=== PATIENT | female | born 1935 | race Caucasian/White ===

== ENCOUNTER → 2016-05-24 | Outpatient (CLI) | payer MEDICARE, OTHER ==
--- NOTE | 2016-05-24 14:34 | REPMRS ---
Patient History The patient states she had a clinical breast exam in 01/2016. Patient is postmenopausal. Family history of prostate cancer in father at age 70. Took unspecified hormones for 1 year. Digital Woman Screen Mammo: May 24, 2016 - Exam #: [id number] Bilateral CC and MLO view(s) were taken. Technologist: Sydnee Workman, Technologist Prior study comparison: May 12, 2015, digital woman screen mammo performed at [facility]. April 27, 2014, bilateral bilat screen digital mammo, performed at [facility] FINDINGS: There are scattered fibroglandular densities. There has been no change in the appearance of the mammogram from the prior studies. There is a mild amount of residual fibroglandular tissue which is fairly symmetric. There is no interval development of dominant mass, architectural distortion, or clustered microcalcification suggestive of malignancy. ASSESSMENT: BI-RADS/ACR category 1 mammogram. Negative. Recommendation Routine screening mammogram in 1 year (for women over age 40). This mammogram was interpreted with the aid of an FDA-approved computer-aided dectection system. Electronically Signed By: Justin Sellers MD 05/24/16 1490
== END ==
LOC: M WHC 13:29
PROVIDERS: ATTEND Internal Medicine
DX: Z12.31 Encounter for screening mammogram for malignant neoplasm of breast (principal); Z78.0 Asymptomatic menopausal state

== ENCOUNTER → 2016-06-26 | Outpatient (REF) | payer MEDICARE, OTHER ==
[2016-06-26 13:07] LABS: ALBUMIN 3.7 GM/DL (3.2-5.2); ALBUMIN/GLOBULIN RATIO 1.19 (1.00-1.93); BILIRUBIN,TOTAL 0.7 MG/DL (0.2-1.0); CALCIUM LEVEL 8.9 MG/DL (8.8-10.2); CREATININE FOR GFR 0.97 MG/DL (0.55-1.02); GLOMERULAR FILTRATION RATE 58.7 (>32); MAGNESIUM LEVEL 2.3 MG/DL (1.8-2.4); POTASSIUM SERUM 3.9 MEQ/L (3.5-5.1); TOTAL PROTEIN 6.8 GM/DL (6.4-8.2)
[2016-06-26 13:10] LABS: MEAN CORPUSCULAR HEMOGLOBIN 29.2 pg (27.0-33.0); MEAN CORPUSCULAR HGB CONC 32.8 g/dl (32.0-36.5); RED CELL DISTRIBUTION WIDTH 14.4 % (11.5-14.5); WHITE BLOOD COUNT 7.6 K/mm3 (4.0-10.0)
== END ==
LOC: M SFHCPLAZ 09:24
PROVIDERS: ATTEND Internal Medicine
DX: G47.30 Sleep apnea, unspecified (principal); I10 Essential (primary) hypertension; E78.00 Pure hypercholesterolemia, unspecified; E55.9 Vitamin D deficiency, unspecified

== ENCOUNTER → 2016-12-26 | Outpatient (REF) | payer MEDICARE, OTHER ==
[2016-12-26 13:24] LABS: ALBUMIN 3.6 GM/DL (3.2-5.2); BILIRUBIN,TOTAL 0.9 MG/DL (0.2-1.0); CREATININE FOR GFR 1.02 MG/DL (0.55-1.02); GLOMERULAR FILTRATION RATE 55.2 (>32); POTASSIUM SERUM 3.9 MEQ/L (3.5-5.1); TOTAL PROTEIN 7.2 GM/DL (6.4-8.2)
== END ==
LOC: M SFHCADAM 09:39
PROVIDERS: ATTEND Internal Medicine
DX: I10 Essential (primary) hypertension (principal); E55.9 Vitamin D deficiency, unspecified

== ENCOUNTER → 2017-06-07 | Outpatient (CLI) | payer MEDICARE, OTHER | LOC: M RAD 13:26 | DX: R92.0 Mammographic microcalcification found on diagnostic imaging of breast (principal) | CPT/HCPCS: 77065 ==

== ENCOUNTER → 2017-06-26 | Outpatient (REF) | payer MEDICARE, OTHER ==
[2017-06-26 14:20] LABS: HEMATOCRIT 35.7 % (36.0-47.0); HEMOGLOBIN 11.4 g/dl (12.0-16.0); MEAN CORPUSCULAR HEMOGLOBIN 29.1 pg (27.0-33.0); MEAN CORPUSCULAR HGB CONC 31.9 g/dl (32.0-36.5); MEAN CORPUSCULAR VOLUME 91.1 fl (80.0-96.0); PLATELET COUNT, AUTOMATED 317 10^3/uL (150-450); RED BLOOD COUNT 3.92 10^6/uL (4.00-5.40); RED CELL DISTRIBUTION WIDTH 14.5 % (11.5-14.5); WHITE BLOOD COUNT 7.6 10^3/uL (4.0-10.0)
[2017-06-26 14:39] LABS: ALBUMIN 3.4 GM/DL (3.2-5.2); ALBUMIN/GLOBULIN RATIO 1.03 (1.00-1.93); ALKALINE PHOSPHATASE 141 U/L (45-117); ALT/SGPT 17 U/L (12-78); ANION GAP 9 MEQ/L (8-16); AST/SGOT 12 U/L (7-37); BILIRUBIN,TOTAL 0.6 MG/DL (0.2-1.0); BLOOD UREA NITROGEN 18 MG/DL (7-18); CALCIUM LEVEL 8.6 MG/DL (8.8-10.2); CARBON DIOXIDE LEVEL 29 MEQ/L (21-32); CHLORIDE LEVEL 103 MEQ/L (98-107); CHOLESTEROL LEVEL 143 MG/DL (<200); CHOLESTEROL RISK RATIO 2.553 (<5); CREATININE FOR GFR 0.96 MG/DL (0.55-1.30); GLOMERULAR FILTRATION RATE 59.2 (>32); GLUCOSE, FASTING 86 MG/DL (70-100); HDL CHOLESTEROL 56 MG/DL (>40); LDL CHOLESTEROL 62.6 MG/DL (<100); MAGNESIUM LEVEL 2.3 MG/DL (1.8-2.4); NON-HDL-C 87 MG/DL; POTASSIUM SERUM 4.2 MEQ/L (3.5-5.1); SODIUM LEVEL 141 MEQ/L (136-145); TOTAL PROTEIN 6.7 GM/DL (6.4-8.2); TRIGLYCERIDES LEVEL 122 MG/DL (<150)
[2017-06-26 15:43] LABS: TOTAL 25(OH) VITAMIN D 35.9 NG/ML (30.0-100.0)
== END ==
LOC: M SFHCPLAZ 09:29
DX: I10 Essential (primary) hypertension (principal); G47.30 Sleep apnea, unspecified; D64.9 Anemia, unspecified; F09 Unspecified mental disorder due to known physiological condition; E55.9 Vitamin D deficiency, unspecified; E78.00 Pure hypercholesterolemia, unspecified
CPT/HCPCS: 83735

== ENCOUNTER → 2017-08-01 | Outpatient (CLI) | payer MEDICARE, OTHER | LOC: M RAD 10:14 | DX: F03.90 Unspecified dementia, unspecified severity, without behavioral disturbance, psychotic disturbance, mood disturbance, and anxiety (principal); I67.81 Acute cerebrovascular insufficiency; R93.0 Abnormal findings on diagnostic imaging of skull and head, not elsewhere classified | CPT/HCPCS: 70551 ==

== ENCOUNTER → 2018-01-09 | Outpatient (REF) | payer MEDICARE, OTHER ==
[2018-01-09 13:19] LABS: ALBUMIN 3.4 GM/DL (3.2-5.2); ALKALINE PHOSPHATASE 150 U/L (45-117); ALT/SGPT 19 U/L (12-78); ANION GAP 9 MEQ/L (8-16); AST/SGOT 10 U/L (7-37); BILIRUBIN,TOTAL 0.5 MG/DL (0.2-1.0); BLOOD UREA NITROGEN 19 MG/DL (7-18); CALCIUM LEVEL 8.6 MG/DL (8.8-10.2); CARBON DIOXIDE LEVEL 28 MEQ/L (21-32); CHLORIDE LEVEL 106 MEQ/L (98-107); CREATININE FOR GFR 0.97 MG/DL (0.55-1.30); GLOMERULAR FILTRATION RATE 58.4 (>32); GLUCOSE, FASTING 95 MG/DL (70-100); MAGNESIUM LEVEL 2.4 MG/DL (1.8-2.4); POTASSIUM SERUM 4.1 MEQ/L (3.5-5.1); SODIUM LEVEL 143 MEQ/L (136-145); TOTAL PROTEIN 6.8 GM/DL (6.4-8.2)
== END ==
LOC: M SFHCADAM 10:03
DX: I10 Essential (primary) hypertension (principal)
CPT/HCPCS: 83735

== ENCOUNTER → 2018-06-04 | Outpatient (CLI) | payer MEDICARE, OTHER ==
--- NOTE | 2018-06-04 17:55 | REP ---
Digital screening mammography with CAD: Comparison mammography: 06/07/2017 and 05/29/2017, 05/24/2016. Mammographic findings: There are scattered fibroglandular elements bilaterally. Vascular calcification is again noted bilaterally. Today's mammography again demonstrates a polymorphic tight grouping of microcalcifications in the right lateral mid breast unchanged from most recent comparison study of June 09, 2017 but progressed when compared with the older studies. No other suspicious mammographic finding. Impression: BIRADS/ACR 0 mammogram, incomplete. Additional imaging and/or prior images needed. Suspicious grouping of microcalcifications persists in the right breast laterally at approximately 9 o'clock position. Diagnostic right breast mammography recommended. BI-RADS/ACR category 0 mammogram, incomplete. Need additional imaging and/or prior mammograms for comparison. This mammogram was interpreted with the aid of an FDA-approved computer-aided detection system. The patient states that she has not had a clinical breast exam in over a year. The patient letter being requested is m0. This patient's estimated Tyrer-Cuzick lifetime risk assessment for the breast cancer is 0.5 %. Electronically Signed by Boni Salomon MD 06/04/2018 06:18 P
== END ==
LOC: M RAD 12:49
PROVIDERS: ATTEND Internal Medicine
DX: Z12.31 Encounter for screening mammogram for malignant neoplasm of breast (principal); R92.0 Mammographic microcalcification found on diagnostic imaging of breast

== ENCOUNTER → 2018-06-07 | Outpatient (CLI) | payer MEDICARE, OTHER ==
--- NOTE | 2018-06-07 13:31 | REP ---
Digital diagnostic unilateral right breast mammography with CAD: History: Screening mammography from June 04, 2018 is BI-RADS category 0 incomplete because of a previously noted grouping of microcalcifications persisting in the right breast laterally. These had been identified on June 07, 2017 and were categorized BI-RADS IV suspicious. Mammographic findings: Magnified focal spot compression CC, MLO, and true ML views of the right breast are obtained. A non-magnified true ML view is obtained. The microcalcific grouping is best seen in the CC projection and is felt to be unchanged from the May 2017 prior study. It remain suspicious. No other significant mammographic finding. Impression: BI-RADS/ACR category 4 mammogram. Suspicious abnormality - biopsy should be considered. Usually requires biopsy. BI-RADS category IV suspicious right breast imaging. Microcalcific grouping persists in the upper outer quadrant. Stereotactic needle biopsy recommended. No change since June 07, 2017. This mammogram was interpreted with the aid of an FDA-approved computer-aided detection system. The patient states that she/he has not had a clinical breast exam in over a year. The patient letter being requested is m4 . Electronically Signed by Boni Salomon MD 06/07/2018 07:54 P
== END ==
LOC: M RAD 12:20
PROVIDERS: ATTEND Internal Medicine
DX: R92.0 Mammographic microcalcification found on diagnostic imaging of breast (principal)

== ENCOUNTER → 2018-07-16 | Outpatient (REF) | payer MEDICARE, OTHER ==
[2018-07-16 13:39] LABS: HEMATOCRIT 39.6 % (36.0-47.0); HEMOGLOBIN 12.4 g/dl (12.0-15.5); MEAN CORPUSCULAR HEMOGLOBIN 29.2 pg (27.0-33.0); MEAN CORPUSCULAR HGB CONC 31.3 g/dl (32.0-36.5); MEAN CORPUSCULAR VOLUME 93.2 fl (80.0-96.0); PLATELET COUNT, AUTOMATED 327 10^3/uL (150-450); RED BLOOD COUNT 4.25 10^6/uL (4.00-5.40); WHITE BLOOD COUNT 7.9 10^3/uL (4.0-10.0)
[2018-07-16 14:50] LABS: ALBUMIN 3.5 GM/DL (3.2-5.2); BILIRUBIN,TOTAL 0.7 MG/DL (0.2-1.0); CALCIUM LEVEL 8.7 MG/DL (8.8-10.2); CHOLESTEROL RISK RATIO 2.469 (<5); CREATININE FOR GFR 0.98 MG/DL (0.55-1.30); GLOMERULAR FILTRATION RATE 57.7 (>32); MAGNESIUM LEVEL 2.3 MG/DL (1.8-2.4); TOTAL PROTEIN 6.8 GM/DL (6.4-8.2)
== END ==
LOC: M SFHCADAM 08:48
PROVIDERS: ATTEND Internal Medicine
DX: G47.30 Sleep apnea, unspecified (principal); I10 Essential (primary) hypertension; E78.00 Pure hypercholesterolemia, unspecified

== ENCOUNTER → 2019-01-15 | Outpatient (REF) | payer MEDICARE, OTHER ==
[2019-01-15 12:31] LABS: HEMATOCRIT 38.5 % (36.0-47.0); HEMOGLOBIN 12.5 g/dl (12.0-15.5); MEAN CORPUSCULAR HEMOGLOBIN 30.1 pg (27.0-33.0); MEAN CORPUSCULAR HGB CONC 32.5 g/dl (32.0-36.5); MEAN CORPUSCULAR VOLUME 92.8 fl (80.0-96.0); PLATELET COUNT, AUTOMATED 293 10^3/uL (150-450); RED BLOOD COUNT 4.15 10^6/uL (4.00-5.40); WHITE BLOOD COUNT 8.8 10^3/uL (4.0-10.0)
[2019-01-15 12:32] LABS: ALBUMIN 3.6 GM/DL (3.2-5.2); BILIRUBIN,TOTAL 0.6 MG/DL (0.2-1.0); CREATININE FOR GFR 1.06 MG/DL (0.55-1.30); GLOMERULAR FILTRATION RATE 52.6 (>32); MAGNESIUM LEVEL 2.3 MG/DL (1.8-2.4); POTASSIUM SERUM 4.3 MEQ/L (3.5-5.1); TOTAL PROTEIN 6.7 GM/DL (6.4-8.2)
== END ==
LOC: M SFHCADAM 09:25
PROVIDERS: ATTEND Internal Medicine
DX: G47.30 Sleep apnea, unspecified (principal); D64.9 Anemia, unspecified; I10 Essential (primary) hypertension; E55.9 Vitamin D deficiency, unspecified

== ENCOUNTER 2019-05-25 19:12 | Emergency (ER) | payer MEDICARE, OTHER ==
[~2019-05-25] VITALS: Ht 152.4 cm; Wt 84.1 kg
[2019-05-25 19:26] VITALS: BP 138/77
[2019-05-25] MEDS ORDERED: MEMA10TA19 PO (19:31)
[2019-05-25] MEDS ORDERED: XARE20TA PO (19:31)
[2019-05-25] MEDS ORDERED: FURO20TA2 PO (19:31)
[2019-05-25] MEDS ORDERED: DONETAB6 PO (19:32)
[2019-05-25] MEDS ORDERED: ATOR40TA75 PO (19:33)
[2019-05-25] MEDS ORDERED: FLUO10CA15 PO (19:33)
[2019-05-25] MEDS ORDERED: D3 S1CAP3 PO (19:33)
[2019-05-25] MEDS ORDERED: MIRA3350 PO (19:37)
[2019-05-25] MEDS ORDERED: NS 500 ML IV ONE (20:00)
[2019-05-25 20:15] LABS: BASO % 0.4 % (0.0-1.0); EOS # 0.1 10^3/uL (0.0-0.5); EOS % 0.7 % (0.0-3.0); HEMATOCRIT 40.4 % (36.0-47.0); HEMOGLOBIN 12.7 g/dl (12.0-15.5); LYMPH # 1.6 10^3/uL (1.5-5.0); LYMPH % 19.6 % (24.0-44.0); MEAN CORPUSCULAR HEMOGLOBIN 28.6 pg (27.0-33.0); MEAN CORPUSCULAR HGB CONC 31.4 g/dl (32.0-36.5); MONO # 0.5 10^3/uL (0.0-0.8); MONO % 6.5 % (0.0-5.0); NEUTROPHILS # 5.9 10^3/uL (1.5-8.5); NEUTROPHILS % 72.4 % (36.0-66.0); PLATELET COUNT, AUTOMATED 296 10^3/uL (150-450); RED BLOOD COUNT 4.44 10^6/uL (4.00-5.40); WHITE BLOOD COUNT 8.2 10^3/uL (4.0-10.0)
[2019-05-25 20:34] LABS: INFLUENZA A AMPLIFICATION NEGATIVE (NEGATIVE); INFLUENZA B AMPLIFICATION NEGATIVE (NEGATIVE)
[2019-05-25 20:39] LABS: APPEARANCE, URINE CLEAR (CLEAR); BACTERIA, URINE AUTO NEGATIVE (NEGATIVE); BILIRUBIN, URINE AUTO NEGATIVE (NEGATIVE); BLOOD, URINE BLOOD NEGATIVE (NEGATIVE); COLOR, URINE YELLOW (YELLOW); GLUCOSE, URINE (UA) AUTO NEGATIVE (NEGATIVE); KETONE, URINE AUTO NEGATIVE (NEGATIVE); LEUKOCYTE ESTERASE, URINE AUTO NEGATIVE (NEGATIVE); MUCUS, URINE SMALL (NEGATIVE); NITRITE, URINE AUTO NEGATIVE (NEGATIVE); PROTEIN, URINE AUTO NEGATIVE (NEGATIVE); RBC, URINE AUTO 0 /HPF (0-3); SQUAMOUS EPITHELIAL CELL UR AU 0 /HPF (0-6); UROBILINOGEN, URINE AUTO 0.2 mg/dL (0.0-2.0); WBC, URINE AUTO 0 /HPF (0-3)
[2019-05-25 20:48] LABS: CALCIUM LEVEL 9.2 MG/DL (8.8-10.2); CREATININE FOR GFR 1.1 MG/DL (0.55-1.30); FREE THYROXINE INDEX 3.1 % (1.3-4.8); GLOMERULAR FILTRATION RATE 50.4 (>32); POTASSIUM SERUM 3.3 MEQ/L (3.5-5.1); THYROID STIMULATING HORMONE 3.51 uIU/ML (0.358-3.740); THYROXINE (T4) 8.9 UG/DL (4.5-12.0)
[2019-05-25] MEDS ORDERED: POTASSIUM CHLORIDE 10 MEQ SR TABLET PO ONE (21:00)
--- NOTE | 2019-05-25 23:04 | REP ---
Clinical: Cough . Comparison: None . Findings: The mediastinum and cardiac silhouette are stable and within normal limits for portable technique. The lung wagner are clear without acute consolidation, effusion, or pneumothorax. Skeletal structures are intact. Impression: No acute cardiopulmonary process appreciated. Electronically Signed by Jens Warren MD 05/25/2019 10:55 P
== END 2019-05-25 22:38 | disposition home or self-care (01) ==
LOC: M ED 19:12 → EDBD 19:12 → M ED 22:38
DX: E86.9 Volume depletion, unspecified (principal); E87.6 Hypokalemia; I10 Essential (primary) hypertension; I48.91 Unspecified atrial fibrillation; D64.9 Anemia, unspecified; G62.9 Polyneuropathy, unspecified; K21.9 Gastro-esophageal reflux disease without esophagitis; Z79.899 Other long term (current) drug therapy; Z79.01 Long term (current) use of anticoagulants

== ENCOUNTER → 2019-06-03 | Outpatient (REF) | payer MEDICARE, OTHER ==
[~2019-06-03] MED LIST: ATOR40TA75 PO; D3 S1CAP3 PO; DONETAB6 PO; FLUO10CA15 PO; FURO20TA2 PO; MEMA10TA19 PO; MIRA3350 PO; XARE20TA PO
[2019-06-03 19:49] LABS: APPEARANCE, URINE HAZY (CLEAR); BACTERIA, URINE AUTO 2+ (NEGATIVE); BILIRUBIN, URINE AUTO NEGATIVE (NEGATIVE); BLOOD, URINE BLOOD 1+ (NEGATIVE); COLOR, URINE YELLOW (YELLOW); GLUCOSE, URINE (UA) AUTO NEGATIVE (NEGATIVE); KETONE, URINE AUTO NEGATIVE (NEGATIVE); LEUKOCYTE ESTERASE, URINE AUTO 3+ (NEGATIVE); MUCUS, URINE SMALL (NEGATIVE); NITRITE, URINE AUTO POSITIVE (NEGATIVE); PROTEIN, URINE AUTO NEGATIVE (NEGATIVE); RBC, URINE AUTO 5 /HPF (0-3); SPECIFIC GRAVITY URINE AUTO 1.015 (1.002-1.035); SQUAMOUS EPITHELIAL CELL UR AU 0 /HPF (0-6); UROBILINOGEN, URINE AUTO 0.2 mg/dL (0.0-2.0); WBC, URINE AUTO 37 /HPF (0-3)
== END ==
LOC: M SMT 16:52
PROVIDERS: ATTEND Nurse Practitioner Family
DX: R31.0 Gross hematuria (principal)
CPT/HCPCS: 51798; 81001; 87088; 87186; 88108; G0463

== ENCOUNTER → 2019-07-22 | Outpatient (REF) | payer MEDICARE, OTHER ==
[2019-07-22 12:30] LABS: HEMATOCRIT 36.6 % (36.0-47.0); HEMOGLOBIN 11.8 g/dl (12.0-15.5); MEAN CORPUSCULAR HEMOGLOBIN 29.6 pg (27.0-33.0); MEAN CORPUSCULAR HGB CONC 32.2 g/dl (32.0-36.5); MEAN CORPUSCULAR VOLUME 91.7 fl (80.0-96.0); PLATELET COUNT, AUTOMATED 275 10^3/uL (150-450); RED BLOOD COUNT 3.99 10^6/uL (4.00-5.40); WHITE BLOOD COUNT 7.6 10^3/uL (4.0-10.0)
[2019-07-22 13:07] LABS: ALBUMIN 3.2 GM/DL (3.2-5.2); BILIRUBIN,TOTAL 0.5 MG/DL (0.2-1.0); CALCIUM LEVEL 8.7 MG/DL (8.8-10.2); CHOLESTEROL RISK RATIO 2.73 (<5); CREATININE FOR GFR 1.04 MG/DL (0.55-1.30); GLOMERULAR FILTRATION RATE 53.7 (>32); MAGNESIUM LEVEL 2.3 MG/DL (1.8-2.4); POTASSIUM SERUM 3.8 MEQ/L (3.5-5.1); THYROID STIMULATING HORMONE 3.05 uIU/ML (0.358-3.740); TOTAL PROTEIN 6.4 GM/DL (6.4-8.2)
== END ==
LOC: M SFHCADAM 11:06
PROVIDERS: ATTEND Internal Medicine
DX: D64.9 Anemia, unspecified (principal); I10 Essential (primary) hypertension; E78.00 Pure hypercholesterolemia, unspecified; R23.2 Flushing

== ENCOUNTER 2019-08-27 11:51 | Day surgery (SDC) | payer MEDICARE, OTHER ==
[~2019-08-27] VITALS: Ht 152.4 cm; Wt 82.1 kg
[~2019-08-27 11:51] MED LIST changes: +LIDOCAINE 2% INJ 100 MG/5 ML SDV (FOR ANES.) As Ordered ONE; +LR 1,000 ML IV SCH; +MIDAZOLAM INJ 2 MG/2 ML VIAL (J2250) As Ordered ONE; +ONDANSETRON 4MG/2ML VIAL (J2405) As Ordered ONE; +ceFAZolin SOD 2 GM in IV 1 EA IV ONE; +dexameTHASONE 4 MG/ML 1ML VIAL (J1100 PER 1MG) As Ordered ONE; +fentaNYL 100 MCG/2 ML INJECTION (J3010) As Ordered ONE; +propofoL 200 MG/20 ML VIAL As Ordered ONE
[2019-08-27] MEDS ORDERED: CLON0.1D3 (12:36)
[2019-08-27] MEDS ORDERED: BIMA01SOL (12:36)
[2019-08-27] MEDS ORDERED: TRAM50TA2 (12:36)
[2019-08-27] MEDS ORDERED: LIDOCAINE 1% SDV INJ 30 ML VIAL As Ordered ONE (13:21)
[2019-08-27 15:05] VITALS: BP 125/65
--- NOTE | 2019-08-27 15:22 | RO ---
IMPLANTATION OF LOOP RECORDER DATE OF PROCEDURE: 08/27/2019 PREPROCEDURE DIAGNOSES: 1. Recurrent near syncope/syncope. 2. Arteriovenous (AV) block 9 unspecified. 3. Permanent atrial fibrillation. POSTPROCEDURE DIAGNOSES: 1. Recurrent near syncope/syncope. 2. Arteriovenous (AV) block 9 unspecified. 3. Permanent atrial fibrillation. PROCEDURE: Implantation of loop recorder. SURGEON: Dr. You Howard. ANESTHESIA: Dr. Calvillo. TYPE OF ANESTHESIA: Monitored local anesthesia. CLINICAL SUMMARY: This 83-year-old mother, retired resident of [place], [place] is well known to my cardiology practice with weight problem, hypertensive and mitral valvular heart disease complicated by abnormal EKG, permanent atrial fibrillation, AV block (unspecified) and heart failure (diastolic dysfunction). She has had a history of new syncopal/diaphoretic episodes dating back to 2013, but these are becoming more frequent. We have performed Holter monitoring and vent monitors in the past and have not been able to capture her typical episode. We discussed the use of an implantable loop recorder to help us further define these episodes in light of their increasing frequency and episode of syncopal syncope May 2019. On her current level of activity, chiefly staying indoors with the recent pandemic, she has been essentially free of other cardiovascular complaints. In particular, no chest pain, unaware of her heart action, no shortness of breath or embolic phenomenon. No claudication. MEDICATIONS: - clonidine 0.1 mg per 24-hour patch once weekly - Xarelto 20 mg by mouth daily - Lasix 20 mg daily - atorvastatin 40 mg daily - MiraLAX as directed - Tylenol 650 mg every 4 hours as needed arthralgia - vitamin D3 2000 units daily - Namenda 10 mg twice a day - Lumigan eye drops in each eye nightly. ALLERGIES: No known allergies PHYSICAL EXAMINATION: Obese pleasant elderly lady laying comfortably. Heart rate 78 beats per minute and irregular. Blood pressure 118/78 unchanged upon sitting with legs dependent. Respiratory rate 16. No pallor or cyanosis. Trachea midline. Neck veins 2 cm above the sternal angle. Increased anteroposterior chest diameter with adequate chest expansion and clear lung wagner. Apical impulse not palpable. Heart sounds were distant and variable with her atrial fibrillation. Has a soft systolic ejection murmur that varies with intensity heard maximally along the left sternal border and right base. No diastolic murmur. Normal carotid upstrokes and variable volume related to her atrial fibrillation. Tender shins with no more than subtle, pitting mostly nonpitting edema. Soft, nontender abdomen. EK showed underlying atrial fibrillation with control of ventricular response averaging 81 beats per minute without negative chronotropic therapy. Low QRS voltages with slow precordial R-wave progression in keeping with body habitus. Nonspecific ST/T wave abnormalities unchanged from last February. BLOOD WORK: 07/22/2019 showed a hemoglobin of 11.8, which is stable. Normal white blood cell count and platelet count. Electrolytes were in balance with potassium 3.8, BUN 20, creatinine 1.0, random glucose 82, magnesium level 2.3, thyroid stimulating hormone level was normal at 3.0. DESCRIPTION OF PROCEDURE: With the patient in the fasting state, having signed informed consent, she received Ancef 2 mg IV premedication prior to be taken to the operating theater. Numerous skin electrodes were applied to facilitate continuous echocardiographic monitoring. The left parasternal region was prepped and draped in the usual fashion. A region in her third intercostal space 3 cm lateral to the left parasternal border was infiltrated with Xylocaine along a 4 cm tract anticipated delivery of her loop recorder. A one-half inch incision was made with the #11 blade and the Serrano insertion tool was advanced to the incision on a 45-degree angle toward her nipple. Transmitted signals to her testing monitor edi programmer were excellent measuring 0.68 mV. The retracting suture was removed and the small incision was closed using two stables. A dry dressing was applied with OpSite. Loop recorder identification (Serrano model #[id number], serial #[id number]). Patient was returned to the recovery room in good condition and once she is able to ambulate, she will be allowed to be discharged home. ESTIMATED BLOOD LOSS: 0 APPARENT COMPLICATIONS: None. She will resume her customary dietary measures and perform regular activities. Her usual medications will be resumed with Xarelto tomorrow at 5 pm. She has a followup appointment in my office for wound check and staple removal in approximately 7 days. We have encouraged her to contact us promptly for any abnormal erythema, swelling or discharge. DIANDRA
== END 2019-08-27 15:10 | disposition home or self-care (01) ==
LOC: M SDC 11:51
PROVIDERS: ATTEND Internal Medicine Cardiovascular Disease
DX: R55 Syncope and collapse (principal); I44.30 Unspecified atrioventricular block; I48.21 Permanent atrial fibrillation; I11.9 Hypertensive heart disease without heart failure; I50.30 Unspecified diastolic (congestive) heart failure; E78.00 Pure hypercholesterolemia, unspecified; Z79.899 Other long term (current) drug therapy
CPT/HCPCS: 33285; C1764; J0690; J1100; J2250; J2405; J3010

== ENCOUNTER → 2019-10-15 | Outpatient (CLI) | payer MEDICARE, OTHER ==
[~2019-10-15] MED LIST changes: +BIMA01SOL; +CLON0.1D3; -LIDOCAINE 2% INJ 100 MG/5 ML SDV (FOR ANES.) As Ordered ONE; -LR 1,000 ML IV SCH; -MIDAZOLAM INJ 2 MG/2 ML VIAL (J2250) As Ordered ONE; -ONDANSETRON 4MG/2ML VIAL (J2405) As Ordered ONE; +TRAM50TA2; -ceFAZolin SOD 2 GM in IV 1 EA IV ONE; -dexameTHASONE 4 MG/ML 1ML VIAL (J1100 PER 1MG) As Ordered ONE; -fentaNYL 100 MCG/2 ML INJECTION (J3010) As Ordered ONE; -propofoL 200 MG/20 ML VIAL As Ordered ONE
--- NOTE | 2019-10-15 14:31 | REPMRS ---
Patient History The patient states she has not had a clinical breast exam in over a year. Family history of prostate cancer at age 70 in father. Took unspecified hormones for 1 year. Digital Woman Screen Mammo: October 15, 2019 - Exam #: [id number] Bilateral CC and MLO view(s) were taken. Technologist: Suki Lam, Technologist Prior study comparison: June 07, 2018, right breast digital mammo diagnostic unilateral, performed at [facility]. June 04, 2018, bilateral digital mammo screening bilat, performed at [facility]. June 07, 2017, right breast digital mammo diagnostic unilateral, performed at [facility]. May 29, 2017, bilateral digital mammo screening bilat, performed at [facility]. May 24, 2016, digital woman screen mammo performed at [facility]. FINDINGS: The breast tissue is heterogeneously dense. This may lower the sensitivity of mammography. The Volpara volumetric breast density category is: C. The previously noted grouping of microcalcifications in the right lateral breast is again seen. These do not show evidence of progression now in the interval since the June 07, 2017 prior study. No mass or spiculation has developed. Calcifications appear a little less conspicuous on today's mammography although the persist. No new finding. A cardiac loop recorder is seen overlying the left medial breast. There is a moderate amount of heterogeneously dense fibroglandular tissue which is fairly symmetric. There is no interval development of dominant mass, architectural distortion, or grouped microcalcification typical of malignancy. There has been no change in the appearance of the mammogram from the prior studies. Assessment: BI-RADS/ACR category 2 mammogram. Benign Findings. Recommendation Routine screening mammogram of both breasts in 1 year (for women over age 40). This mammogram was interpreted with the aid of an FDA-approved computer-aided dectection system. Electronically Signed By: Samson Salomon MD 10/15/19 [id number]
== END ==
LOC: M WHC 13:00
PROVIDERS: ATTEND Internal Medicine
DX: Z12.31 Encounter for screening mammogram for malignant neoplasm of breast (principal); Z80.42 Family history of malignant neoplasm of prostate; R92.0 Mammographic microcalcification found on diagnostic imaging of breast

== ENCOUNTER → 2020-01-30 | Outpatient (REF) | payer MEDICARE, OTHER ==
[~2020-01-30] MED LIST changes: +ATEN25TA; +CLAR10CA3 PO; +FAMO20TA PO; +FLON1SPR; -FLUO10CA15 PO; +FLUO10CA16 PO
[2020-01-30 13:48] LABS: HEMATOCRIT 36.7 % (36.0-47.0); HEMOGLOBIN 11.5 g/dl (12.0-15.5); MEAN CORPUSCULAR HEMOGLOBIN 29.6 pg (27.0-33.0); MEAN CORPUSCULAR HGB CONC 31.3 g/dl (32.0-36.5); MEAN CORPUSCULAR VOLUME 94.6 fl (80.0-96.0); PLATELET COUNT, AUTOMATED 240 10^3/uL (150-450); RED BLOOD COUNT 3.88 10^6/uL (4.00-5.40); WHITE BLOOD COUNT 7.3 10^3/uL (4.0-10.0)
[2020-01-30 14:17] LABS: ALBUMIN 3.2 GM/DL (3.2-5.2); BILIRUBIN,TOTAL 0.6 MG/DL (0.2-1.0); CALCIUM LEVEL 8.7 MG/DL (8.8-10.2); CREATININE FOR GFR 0.99 MG/DL (0.55-1.30); GLOMERULAR FILTRATION RATE 56.8 (>32); POTASSIUM SERUM 4.4 MEQ/L (3.5-5.1); TOTAL PROTEIN 6.7 GM/DL (6.4-8.2)
== END ==
LOC: M LABDRWAD 12:45
PROVIDERS: ATTEND Internal Medicine
DX: D64.9 Anemia, unspecified (principal); I10 Essential (primary) hypertension

== ENCOUNTER → 2020-03-09 | Outpatient (CLI) | payer MEDICARE, OTHER ==
--- NOTE | 2020-03-09 12:08 | REP ---
INDICATION: COUGH, CHRONIC DIASTOLIC, HYPERTENSIVE HEART DISEASE W/HEART COMPARISON: 05/25/2019 TECHNIQUE: PA and lateral. FINDINGS: The mediastinum and cardiac silhouette are normal. The lung wagner are clear and without acute consolidation, effusion, or pneumothorax. The skeletal structures are intact and normal. Stable chronic interstitial changes are again noted. Loop recorder overlies the cardiac silhouette. IMPRESSION: No acute cardiopulmonary process. <Electronically signed by Jens Warren > 03/09/20 [id number]
== END ==
LOC: M ADAMS 10:46
PROVIDERS: ATTEND Internal Medicine Cardiovascular Disease
DX: Z01.812 Encounter for preprocedural laboratory examination (principal); R05 Cough; I11.0 Hypertensive heart disease with heart failure; I50.32 Chronic diastolic (congestive) heart failure; I48.21 Permanent atrial fibrillation; I34.0 Nonrheumatic mitral (valve) insufficiency; R94.31 Abnormal electrocardiogram [ECG] [EKG]; Z20.828 Contact with and (suspected) exposure to other viral communicable diseases
CPT/HCPCS: 36415; 71046; 80069; 83735; 83880; 85025; C9803; U0003

== ENCOUNTER → 2020-03-09 | Outpatient (CLI) | payer MEDICARE, OTHER ==
[2020-03-09 12:42] LABS: BASO % 0.5 % (0.0-1.0); EOS # 0.1 10^3/uL (0.0-0.5); EOS % 1.4 % (0.0-3.0); HEMATOCRIT 39.9 % (36.0-47.0); HEMOGLOBIN 12.8 g/dl (12.0-15.5); LYMPH # 1.7 10^3/uL (1.5-5.0); LYMPH % 19.4 % (24.0-44.0); MEAN CORPUSCULAR HEMOGLOBIN 29.5 pg (27.0-33.0); MEAN CORPUSCULAR HGB CONC 32.1 g/dl (32.0-36.5); MEAN CORPUSCULAR VOLUME 91.9 fl (80.0-96.0); MONO # 0.6 10^3/uL (0.0-0.8); NEUTROPHILS # 6.2 10^3/uL (1.5-8.5); NEUTROPHILS % 71.1 % (36.0-66.0); PLATELET COUNT, AUTOMATED 308 10^3/uL (150-450); RED BLOOD COUNT 4.34 10^6/uL (4.00-5.40); WHITE BLOOD COUNT 8.7 10^3/uL (4.0-10.0)
[2020-03-09 13:21] LABS: ALBUMIN 3.5 GM/DL (3.2-5.2); CALCIUM LEVEL 9.4 MG/DL (8.8-10.2); CREATININE FOR GFR 1.06 MG/DL (0.55-1.30); GLOMERULAR FILTRATION RATE 52.4 (>32); MAGNESIUM LEVEL 2.3 MG/DL (1.8-2.4); PHOSPHORUS LEVEL 3.6 MG/DL (2.5-4.9); POTASSIUM SERUM 4.1 MEQ/L (3.5-5.1)
== END ==
LOC: M LABDRWAD 10:52
PROVIDERS: ATTEND Internal Medicine Cardiovascular Disease
DX: I48.21 Permanent atrial fibrillation (principal); I34.0 Nonrheumatic mitral (valve) insufficiency; I11.0 Hypertensive heart disease with heart failure; I50.32 Chronic diastolic (congestive) heart failure; R94.31 Abnormal electrocardiogram [ECG] [EKG]

== ENCOUNTER → 2020-03-09 | Outpatient (CLI) | payer MEDICARE, OTHER | LOC: M LABSMTC 11:55 | PROVIDERS: ATTEND Anesthesiology | DX: Z01.812 Encounter for preprocedural laboratory examination (principal); Z20.828 Contact with and (suspected) exposure to other viral communicable diseases ==

== ENCOUNTER → 2020-03-18 | Outpatient (CLI) | payer MEDICARE, OTHER | LOC: M LABSMTC 11:51 | PROVIDERS: ATTEND Anesthesiology | DX: Z01.818 Encounter for other preprocedural examination (principal) | CPT/HCPCS: C9803; U0003 ==

== ENCOUNTER 2020-03-23 11:17 | Day surgery (SDC) | payer MEDICARE, OTHER ==
[~2020-03-23] VITALS: Ht 152.4 cm; Wt 87.1 kg
[~2020-03-23 11:17] MED LIST changes: +LR 1,000 ML IV ONE
[2020-03-23] MEDS ORDERED: ceFAZolin 2 GM/D5W 50 ML IV BAG (J0690 PER 500MG) As Ordered ONE (13:00)
[2020-03-23] MEDS ORDERED: LIDOCAINE 1% SDV 30ML VIAL As Ordered ONE (13:35)
[2020-03-23] MEDS ORDERED: MIDAZOLAM INJ 2MG/2ML VIAL (J2250 PER 1MG) As Ordered ONE (13:41)
[2020-03-23] MEDS ORDERED: fentaNYL 100 MCG/2 ML INJECTION (J3010) As Ordered ONE (13:41)
[2020-03-23] MEDS ORDERED: propofoL 500 MG/50 ML VIAL As Ordered ONE (13:42)
[2020-03-23] MEDS ORDERED: ceFAZolin 2 GM/D5W 50 ML IV BAG (J0690 PER 500MG) IV ONE (14:25)
[2020-03-23] MEDS ORDERED: fentaNYL 100 MCG/2 ML INJECTION (J3010) IV PRN (16:00)
[2020-03-23] MEDS ORDERED: ONDANSETRON 4MG/2ML VIAL IV PRN (16:00)
[2020-03-23] MEDS ORDERED: oxyCODONE 5MG TAB PO PRN (16:00)
[2020-03-23] MEDS ORDERED: LR 1,000 ML IV SCH (16:00)
[2020-03-23 17:54] VITALS: BP 124/65
[2020-03-23] MEDS ORDERED: ACETAMINOPHEN 325 MG TAB As Ordered ONE (17:58)
[2020-03-23] MEDS ORDERED: IBUPROFEN 400 MG TAB As Ordered ONE (17:59)
[2020-03-23] MEDS ORDERED: IBUPROFEN 600MG TAB PO ONE (18:00)
[2020-03-23] MEDS ORDERED: ACETAMINOPHEN TAB 650MG DOSE (2X325MG) PO ONE (18:00)
--- NOTE | 2020-03-24 09:51 | REP ---
INDICATION: POST PACE MAKER. COMPARISON: Comparison radiograph March 09, 2020.. TECHNIQUE: Portable AP semi-erect view. FINDINGS: Pacemaker insertion view of the left side. Unipolar lead. Skin olivier are noted adjacent to the power plant. There is a loop recorder projecting over the left chest wall as well. There is no evidence of pneumothorax or hydrothorax. Mild cardiomegaly. IMPRESSION: S/p left transvenous unipolar pacemaker. No complication seen. <Electronically signed by Samson Salomon > 03/24/20 0998
--- NOTE | 2020-03-24 12:11 | ROES ---
DATE OF OPERATION: 03/23/2020 PREOPERATIVE DIAGNOSES: * Intermittent high grade AV block (alternating with rapid ventricular response and atrial fibrillation). * Chronic atrial fibrillation. POSTOPERATIVE DIAGNOSES: 1. Intermittent high grade AV block (alternating with rapid ventricular response and atrial fibrillation). 2. Chronic atrial fibrillation. PROCEDURE: Implantation of permanent single-chamber ventricular demand pacemaker. IMPLANTING ENGAGEMENT QUALITY CONSULTANT: You Howard M.D. ANESTHESIOLOGIST: Dr. Gonzales ANESTHESIA: Monitored local anesthesia. CLINICAL SUMMARY: This 84-year-old, woman, resident of [place], [place] is well known to my cardiology practice with hypertensive and valvular heart disease complicated by abnormal EKG, chronic atrial fibrillation, and congestive heart failure (diastolic dysfunction). Other medical problems include obesity, obstructive sleep apnea, gastroesophageal reflux disease and Alzheimers disease. Since 2013, she has been having initially infrequent episodes of near-syncope/diaphoretic episodes. A loop recorder had been implanted in August of this year and has documented that these episodes correlated with flat ventricular responses to her atrial fibrillation up to 180- 90 beats per minute. She has bene given low dose atenolol in hopes of blunting these episodes. Her symptoms had improved but recently her loop recorder has documented episodic high grade AV block with pauses of 3-5 seconds and heart rates as low as the 30s. In light of her tachybrady response to her atrial fibrillation, a single- chamber pacemaker implant was recommended in order to safely allow us to continue to use beta loc therapy to control her rapid rates. She does not exercise on a regular basis but does have physical therapy and her family urging her to walk at least short distances using her walker. She has been free of other cardiovascular complaints. Echocardiographic report on November 05, 2015 showed mild left ventricular hypertrophy with hyperkinetic wall motion, mildly dilated left atrium and elevated estimated V left atrial pressure. Normal right chamber sizes with mild pulmonary hypertension and normal IVC and collapse. Severe mitral annular calcification with mild to moderate mitral regurgitation, mild aortic valvular sclerosis without functional abnormality. Treadmill Cardiolite heart scan performed in July of 2013 showed a poor exercise tolerance limited by fatigue and dyspnea with no evidence of myocardial ischemia on EKG or myocardial perfusion images. On examination, she is a pleasantly demented, obese woman, BMI 36.3, heart rate 68 beats per minute and irregular, blood pressure 119/68 supine, unchanged upon sitting. Respiratory rate 16, slightly barrel-chested. Trachea midline. Neck veins were 2 cm above the sternal angle. Normal oral moisture. No central cyanosis. She has fairly good air entry over both lung wagner with no current abnormal adventitious sounds. Her apical impulse was not palpable. Heart sounds were quite distant. She does have a soft systolic ejection murmur that varied in intensity with her arrhythmia. Normal carotid upstroke but variable volume related to her atrial fibrillation. Left carotid bruit. Abdominal aorta and femoral pulses not palpable because of obesity. Her abdomen was soft and nontender with no apparent hepatosplenomegaly. She has normal pedal pulses with mild chronic and mostly nonpitting swelling of both lower legs. EKG shows underlying atrial fibrillation with rate averaging 74 BPM. Low voltages with slow precordial R wave progression attributed to body habitus and pulmonary disease. Nonspecific ST-T wave abnormalities but unchanged from last August. DESCRIPTION OF PROCEDURE: With the patient in the fasting state, having been off her oral anticoagulation for at last 24 hours and having signed informed consent, she received Ancef 2 gm IV premedication and then taken to the operating theater. Numerous skin electrodes were applied to facilitate continuous electrocardiographic monitoring. The left subclavian region was prepped and draped in the usual fashion and the skin was infiltrated with 1% Xylocaine. The left axillary vein was catheterized using Seldinger technique. A 5 cm linear incision was then made several cm below and parallel to the left clavicle. Dissection was carried down to the level of the pectoralis fascia and a pocket was fashioned below the level of the incision line. A single bipolar screw-in active fixation, steroid-eluting pacing lead was then positioned to the right ventricular apex under fluoroscopic and electrocardiographic control. Right ventricular lead ([employer], model number [id number]/58, serial number [id number]) measurements were focal and stimulation threshold 1.0 V/0.4 ms/impedance 689 ohms. The R wave amplitude measured 8.2 mV. This lead was secured in position with a sleeve suture at its insertion site. It was then connected to a single-chamber pulse generator (Znitin-Swhbgkmd-KKY compatible, model number [id number], serial number [id number]) and appropriate DDD pacing was documented. The pulse generator was placed in the pocket and secured in position with a suture through the upper right-hand corner of the epoxy header. The subcutaneous tissues were approximated using a running quilting suture and the skin was closed using olivier. A dry dressing was applied and the patient was returned to the recovery room in good condition. COMPLICATIONS: No apparent complications. ESTIMATED BLOOD LOSS: Approximately 10 ml Her postoperative portable upright chest x-ray shows good lead position with no pneumothorax. Her postoperative EKG shows underlying atrial fibrillation with controlled ventricular response averaging 72 BPM. Appropriate pacer sensing and inhibition is present at this time (low rate of her pacemaker has been set at 60 beats per minute). We feel now it is safe to administer additional of beta blockade to prevent her rapid symptomatic ventricular responses as previously documented. DISCHARGE INSTTRUCTIONS AND MEDICATIONS: The patient will be able to resume her customary no-added salt weight-reducing diet. We have requested that she perform only light activities of daily living for the next 24 hours and a slight on her left arm for 24 hours. She is to avoid getting her incision wet until she presents to our office for a clinic visit/wound check and staple removal on April 02, 2020 at 11:15 a.m. She will be resuming her atenolol now 25 mg b.i.d. with clonidine 0.1 mg for 24 hour patch weekly, Lasix 20 mg daily, atorvastatin 40 mg q.h.s., MiraLax as directed, Tylenol extra strength 650 mg one tablet q.4h. p.r.n. pain, vitamin D3 2000 units daily, Lumigan eye drops, each eye q.h.s. and Namenda 10 mg b.i.d. Her Xarelto 20 mg daily will be resumed March 26, 2020. We have encouraged her and her family to contact us should she notice any abnormal erythema, swelling or discharge. Should they have any other questions, we have also requested they contact us. DIANDRA
--- NOTE | 2020-03-26 01:48 | ECGEPIP ---
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
== END 2020-03-23 17:54 | disposition home or self-care (01) ==
LOC: M SDC 11:17
PROVIDERS: ATTEND Internal Medicine Cardiovascular Disease
DX: I44.2 Atrioventricular block, complete (principal); I48.21 Permanent atrial fibrillation; R94.31 Abnormal electrocardiogram [ECG] [EKG]; R42 Dizziness and giddiness; I50.32 Chronic diastolic (congestive) heart failure; I11.0 Hypertensive heart disease with heart failure; I34.0 Nonrheumatic mitral (valve) insufficiency; E66.9 Obesity, unspecified; F03.90 Unspecified dementia, unspecified severity, without behavioral disturbance, psychotic disturbance, mood disturbance, and anxiety; Z79.01 Long term (current) use of anticoagulants; Z79.899 Other long term (current) drug therapy
CPT/HCPCS: 33207; 71045; 76000; 93005; C1786; C1898; J0690; J2250; J3010

== ENCOUNTER 2020-05-17 12:41 | Inpatient (IN) | payer MEDICARE, OTHER ==
[~2020-05-17] VITALS: Ht 152.4 cm; Wt 84.7 kg
[~2020-05-17 12:41] MED LIST changes: -BIMA01SOL; +BIMA01SOL OU; -LR 1,000 ML IV ONE
--- NOTE | 2020-05-17 13:51 | REP ---
INDICATION: AMS COMPARISON: 03/23/2020 TECHNIQUE: Portable AP view of the chest FINDINGS: The mediastinum and cardiac silhouette are stable and within normal limits for portable technique. The lung wagner demonstrate stable chronic changes without acute consolidation, effusion, or pneumothorax. Skeletal structures are intact. IMPRESSION: No acute consolidation or effusion. <Electronically signed by Jens Warren > 05/17/20 1425
[2020-05-17 14:02] LABS: RSV AMPLIFICATION NEGATIVE (NEGATIVE)
[2020-05-17 15:50] LABS: BASO % 0.3 % (0.0-1.0); EOS # 0.1 10^3/uL (0.0-0.5); EOS % 0.8 % (0.0-3.0); HEMATOCRIT 38.6 % (36.0-47.0); HEMOGLOBIN 12.2 g/dl (12.0-15.5); LYMPH # 1.7 10^3/uL (1.5-5.0); LYMPH % 18.9 % (24.0-44.0); MEAN CORPUSCULAR HGB CONC 31.6 g/dl (32.0-36.5); MEAN CORPUSCULAR VOLUME 91.9 fl (80.0-96.0); MONO # 0.7 10^3/uL (0.0-0.8); MONO % 7.3 % (0.0-5.0); NEUTROPHILS # 6.5 10^3/uL (1.5-8.5); NEUTROPHILS % 72.1 % (36.0-66.0); PLATELET COUNT, AUTOMATED 296 10^3/uL (150-450); WHITE BLOOD COUNT 9.1 10^3/uL (4.0-10.0)
[2020-05-17 16:02] LABS: CALCIUM LEVEL 9.1 MG/DL (8.8-10.2); CK-MB VALUE MASS 2.2 NG/ML (<3.6); CREATININE FOR GFR 1.04 MG/DL (0.55-1.30); GLOMERULAR FILTRATION RATE 53.6 (>32); MB/CK RELATIVE INDEX 2.65 (< OR =4); POTASSIUM SERUM 3.6 MEQ/L (3.5-5.1); TROPONIN I 0.03 NG/ML (< 0.10)
[2020-05-17] MEDS ORDERED: MOM 30ML SUSPENSION UDC PO PRN (19:00)
[2020-05-17] MEDS ORDERED: ACETAMINOPHEN TAB 650MG DOSE (2X325MG) PO PRN (19:00)
[2020-05-17] MEDS ORDERED: MAALOX 30 ML SUSP *UDC PO PRN (19:00)
--- NOTE | 2020-05-17 19:10 | HPEPDOC ---
[facility] Medical History & Physical Date of Admission May 17, 2020 Date of Service: May 17, 2020 History and Physical CHIEF COMPLAINT: GENERALIZED WEAKNESS, AMS HISTORY OF PRESENT ILLNESS: 84 yo F with a hx of afib on xarelto, s/p pacemaker, HTN, BILL, dementia, brought to ED by for worsening AMS, deconditioning, poor PO intake. Patient is a poor historian AAO x 1, majority of hx obtained from and medical record. PCP Dr. Bustos. Physical Therapy Professor is Dr. Howard. states that in the past week, she has become more difficult to orient, and is more confused. She is calm and cooperative at time of exam. In the ED, found to have UA suggestive of UTI. Admitted to hospitalist service for encephalopathy, UTI management, as well as PT/OT eval and possible placement vs home services assistance. PAST MEDICAL HISTORY: Essential hypertension BILL Hypercholesterolemia Atrial fibrillation Pacemaker Depression GERD Probably osteoarthritis Uropathy PAST SURGICAL HISTORY: Pacemaker placement 2018 Dr. Howard APPENDECTOMY AGE 9 TRANSABDOMINAL HYSTERECTOMY WITH BILATERAL SALPING-OOPHORECTOMY 1976 LEFT PATELLAR TENDON REPAIR 1986 CHOLECYSTECTOMY 1998 RIGHT EAR OPERATION AFTER HEAD TRAUMA, SUBSEQUENT VERTIGO 2002 COLONOSCOPY 07/18/2006 LASER GLAUCOMA SURGERY 02/25 RIGHT TOTAL KNEE REPLACEMENT 03/28/2008 LEFT TOTAL KNEE REPLACEMENT 2009 RETINAL DETACHMENT REPAIR 07/31/2011 OD CATARACT EXTRACTION 11/27/2012 OS CATARACT EXTRACTION 11/08/2012 PANRETINAL PHOTOCOAGULATION OD, FOR CRVO UNRESPONSIVE TO INJECTIONS 06/2019 SOCIAL HISTORY: Lives with no etoh use non smoker FAMILY HISTORY: parents had DM2 ALLERGIES: Please see below. REVIEW OF SYSTEMS: Patient is poor historian. History obtained from 10 point review of systems performed. Patient positive only for weakness, deconditioning reduced by mouth intake and altered mental status. HOME MEDICATIONS: Please see below. PHYSICAL EXAMINATION: VITAL SIGNS: please see below General: NAD, comfortable HEENT: PERRLA, EOMI, sclerae clear Neck: supple, normal ROM, no JVD Respiratory: lungs CTAB, no wheeze, no rales, no crackles CVS: RRR, normal S1, S2, no murmurs Abdo: soft, no masses, no hepatosplenomegaly, BS+, no rebound tenderness Extremities: no edema, pulses 2+ MSK: no joint deformities, normal ROM Neuro: no focal neuro deficits, moving all 4 extremities, CN2-12 intact. Strength 5/5 in all 4 extremities. No nystagmus. Psych: calm, cooperative, AAO x 1 LABORATORY DATA: See below. IMAGING: CXR (05/17/20): The mediastinum and cardiac silhouette are stable and within normal limits for portable technique. The lung wagner demonstrate stable chronic changes without acute consolidation, effusion, or pneumothorax. Skeletal structures are intact. IMPRESSION: No acute consolidation or effusion. MICROBIOLOGY: Please see below. ASSESSMENT: 84 yo F with a hx of afib on xarelto, s/p pacemaker, HTN, BILL, dementia, brought to ED by for worsening AMS, deconditioning, poor PO intake. Admitted for management of encephalopathy/delirium 2/2 UTI. PFS consulted for home services vs placement. . PLAN: UTI - patient reports no dysuria, has no WBC, no fevers, UA+ - will start empiric ceftriaxone - follow up with AMS: - likely delirium superimposed on dementia 2/2 UTI - patient is calm and cooperative - will avoid chemical restraints - redirection Afib - Resume atenolol - ac Xarelto htn - lasix dementia - memantine BILL - will bring CPAP machine in morning - nocturnal O2 monitoring DVT ppx: xarelto for afib. SCDs, TEDs. Vital Signs Vital Signs Date Time Temp Pulse Resp B/P (MAP) Pulse Ox O2 Delivery O2 Flow Rate FiO2 05/17/20 18:45 18 124/60 (81) 05/17/20 18:41 69 05/17/20 17:26 97 05/17/20 12:56 96.9 Room Air Laboratory Data Labs 24H Laboratory Tests 2 05/17/20 13:08: Coronavirus (COVID-19)(PCR) NEGATIVE, Influenza Type A (RT-PCR) NEGATIVE, Influenza Type B (RT-PCR) NEGATIVE, Respiratory Syncytial Virus (PCR) NEGATIVE 05/17/20 13:48: Anion Gap 11, Glomerular Filtration Rate 53.6, Lactic Acid Level 1.4, Calcium Level 9.1, Total Creatine Kinase 83, Creatine Kinase MB 2.2, Creatine Kinase MB Relative Index 2.65, Troponin I 0.03 05/17/20 13:49: Immature Granulocyte % (Auto) 0.6, Neutrophils (%) (Auto) 72.1H, Lymphocytes (%) (Auto) 18.9L, Monocytes (%) (Auto) 7.3H, Eosinophils (%) (Auto) 0.8, Basophils (%) (Auto) 0.3, Neutrophils # (Auto) 6.5, Lymphocytes # (Auto) 1.7, Monocytes # (Auto) 0.7, Eosinophils # (Auto) 0.1, Basophils # (Auto) 0.0, Nucleated Red Blood Cells % (auto) 0.0, Urine Color YELLOW, Urine Appearance CLOUDYH, Urine pH 6.0, Urine Specific Drake 1.019, Urine Protein 1+H, Urine Glucose (UA) NEGATIVE, Urine Ketones 1+H, Urine Blood 1+H, Urine Nitrite NEGATIVE, Urine Bilirubin NEGATIVE, Urine Urobilinogen 2.0H, Urine Leukocyte Esterase 3+H, Urine WBC (Auto) 26H, Urine RBC (Auto) 8H, Urine Hyaline Casts (Auto) 0, Urine Bacteria (Auto) 1+H, Urine Squamous Epithelial Cells 9, Urine Mucus (Auto) SMALL, Urine Sperm (Auto) CBC/BMP Laboratory Tests 05/17/20 13:48 05/17/20 13:49 Microbiology Microbiology 05/17/20 Urine Culture, Received Pending 05/17/20 Blood Culture, Received Pending 05/17/20 Blood Culture, Received Pending Home Medications Scheduled Amoxicillin/Potassium Clav (Augmentin 875-125 Tablet) 1 Each Tablet, 875 MG PO BID Atenolol (Atenolol) 25 Mg Tablet, 25 MG QPM WITH SUPPER Atorvastatin Calcium (Atorvastatin Calcium) 40 Mg Tablet, 40 MG PO QPM WITH SUPPER Bimatoprost (Lumigan) 0.01% 2.5ML Drops, 1 DROP OU QHS Cholecalciferol (Vitamin D3) (Vitamin D3) 50 Mcg Capsule, 50 MCG PO BID Famotidine (Famotidine) 20 Mg Tablet, 20 MG PO QPM WITH SUPPER Fluconazole (Diflucan) 150 Mg Tablet, 1 TAB PO ONCE for yeast infection to be given post antibiotic therapy Fluticasone Propionate (Flonase Allergy Relief) 9.9 Ml [place].susp, 50 MCG NA DAILY Furosemide (Furosemide) 20 Mg Tablet, 20 MG PO DAILY Loratadine (Claritin) 10 Mg Capsule, 10 MG PO DAILY Memantine HCl (Memantine HCl) 10 Mg Tablet, 10 MG PO BID Potassium Chloride (Potassium Chloride) 20 Meq Tablet.er, 1 TAB PO DAILY Rivaroxaban (Xarelto) 20 Mg Tablet, 20 MG PO QPM WITH SUPPER Scheduled PRN Polyethylene Glycol 3350 (Miralax) 119 Gm Powder, 17 GRAM PO DAILY PRN for CONSTIPATION MIX WITH WATER OR JUICE Allergies Coded Allergies: No Known Allergies (Unverified , 05/17/20) A-FIB/CHADSVASC A-FIB History Current/History of A-Fib/PAF?: Yes Current PO Anticoag Therapy: Yes BARBY PERRY MD May 17, 2020 19:10
[2020-05-17] MEDS: RIVAROXABAN 20 MG TAB (XARELTO) PO SCH (23:36)
[2020-05-17] MEDS: atenoloL 25 MG TAB PO SCH (23:37)
[2020-05-17] MEDS: cefTRIAXone SOD 1 GM in D5W MINI-BAG PLUS 50 ML IV SCH (23:37)
[2020-05-17] MEDS ORDERED: NS 500 ML IV SCH ×2 (23:45)
[2020-05-18 00:20] VITALS: BP 130/61
[2020-05-18] MEDS: MEMANTINE 5MG TABLET (NAMENDA) PO SCH ×3 (01:02→20:13)
[2020-05-18] MEDS: DOCUSATE SODIUM 100MG CAPSULE PO SCH ×3 (01:03→20:13)
[2020-05-18] MEDS: ATORVASTATIN 20 MG TAB PO SCH ×2 (01:03→20:13)
[2020-05-18 06:00] VITALS: BP 136/63
[2020-05-18 08:44] LABS: BASO % 0.4 % (0.0-1.0); EOS # 0.1 10^3/uL (0.0-0.5); EOS % 0.6 % (0.0-3.0); HEMATOCRIT 38.2 % (36.0-47.0); HEMOGLOBIN 11.8 g/dl (12.0-15.5); LYMPH # 2.1 10^3/uL (1.5-5.0); MEAN CORPUSCULAR HEMOGLOBIN 29.1 pg (27.0-33.0); MEAN CORPUSCULAR HGB CONC 30.9 g/dl (32.0-36.5); MEAN CORPUSCULAR VOLUME 94.1 fl (80.0-96.0); MONO # 0.8 10^3/uL (0.0-0.8); MONO % 8.2 % (0.0-5.0); NEUTROPHILS # 6.8 10^3/uL (1.5-8.5); NEUTROPHILS % 69.3 % (36.0-66.0); PLATELET COUNT, AUTOMATED 261 10^3/uL (150-450); RED BLOOD COUNT 4.06 10^6/uL (4.00-5.40); WHITE BLOOD COUNT 9.8 10^3/uL (4.0-10.0)
[2020-05-18] MEDS: FUROSEMIDE 20 MG TAB PO SCH (09:17)
[2020-05-18] MEDS: LORATADINE 10 MG TAB PO SCH (09:17)
[2020-05-18] MEDS: FLUTICASONE PROP 0.05% NASAL SPRAY 16 GM (FLONASE) SCH (09:17)
[2020-05-18 09:21] LABS: BLOOD UREA NITROGEN 13 MG/DL (7-18); CALCIUM LEVEL 8.3 MG/DL (8.8-10.2); CARBON DIOXIDE LEVEL 26 MEQ/L (21-32); CHLORIDE LEVEL 106 MEQ/L (98-107); CREATININE FOR GFR 1.02 MG/DL (0.55-1.30); GLOMERULAR FILTRATION RATE 54.8 (>32); GLUCOSE, FASTING 96 MG/DL (70-100); MAGNESIUM LEVEL 1.9 MG/DL (1.8-2.4); POTASSIUM SERUM 3.5 MEQ/L (3.5-5.1); SODIUM LEVEL 142 MEQ/L (136-145)
--- NOTE | 2020-05-18 12:39 | ECGEPIP ---
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
--- NOTE | 2020-05-18 12:59 | IPNPDOC ---
Text Note Date of Service The patient was seen on 05/18/20. NOTE Subjective: Patient is an 84-year-old female with a PMHx of Dementia, HTN, A. fib (on Xarelto), s/p Pacemaker, HTN, DLP, BILL, Depression, GERD, who presented to the emergency room with deconditioning and reported altered mental status. Patient was admitted to the hospital service for urinary tract infection and potential placement. Patient was seen and examined at the bedside. Currently patient appears to be pleasant, oriented to person alone. Denies any chest pain, shortness of breath or palpitations. Denies any abdominal pain, nausea, vomiting or diarrhea. Objective: Vitals (See below) General: Lying in bed, no acute distress, comfortable, AAOx1 HEENT: NC, AT CVS: +S1S2 Lungs: Fair air entry b/l, no appreciable wheezing / rhonchi / rales Abdomen: Soft, ND, NT Extremities: No evidence of edema, - Calf tenderness Imaging: CXR (05/17/20): No acute consolidation or effusion. Assessment and plan: UTI - UA abnormal - Urine culture 05/17: Pending - c/w Ceftriaxone AMS - likely 2/2 Delirium superimposed on dementia 2/2 UTI - Currently patient appears to be pleasant, calm, cooperative and oriented to person A. fib - c/w rate control with atenolol - c/w full anticoagulation with Xarelto HTN - BP well controlled - c/w Lasix and Atenolol - lasix Dementia - c/w memantine BILL - Will allow home CPAP use while inpatient DLP - c/w Atorvastatin DVT prophylaxis - c/w full anticoagulation with Xarelto Disposition: - Awaiting urine cultures - PT and OT VS,Fishbone, I+O VS, Fishbone, I+O Laboratory Tests 05/17/20 13:48 05/17/20 13:49 05/18/20 08:29 Vital Signs Date Time Temp Pulse Resp B/P (MAP) Pulse Ox O2 Delivery O2 Flow Rate FiO2 05/18/20 06:00 98.8 71 18 136/63 (87) 94 Room Air I&O- Last 24 Hours up to 6 AM 05/18/20 06:00 Intake Total 200 ml Output Total 0 ml Balance 200 ml TORI SMITH MD May 18, 2020 12:59
[2020-05-18 14:00] VITALS: BP 134/64
[2020-05-18] MEDS: RIVAROXABAN 20 MG TAB (XARELTO) PO SCH (17:23)
[2020-05-18 20:15] VITALS: BP 141/90
[2020-05-18] MEDS: atenoloL 25 MG TAB PO SCH (20:15)
[2020-05-18 22:00] VITALS: BP 137/65
[2020-05-19] MEDS: cefTRIAXone SOD 1 GM in D5W MINI-BAG PLUS 50 ML IV SCH (00:15)
[2020-05-19 06:00] VITALS: BP 143/73
[2020-05-19 06:38] LABS: BASO % 0.2 % (0.0-1.0); EOS # 0.1 10^3/uL (0.0-0.5); EOS % 0.8 % (0.0-3.0); HEMATOCRIT 33.7 % (36.0-47.0); LYMPH # 2.3 10^3/uL (1.5-5.0); LYMPH % 20.9 % (24.0-44.0); MEAN CORPUSCULAR HEMOGLOBIN 28.9 pg (27.0-33.0); MEAN CORPUSCULAR HGB CONC 32.6 g/dl (32.0-36.5); MEAN CORPUSCULAR VOLUME 88.7 fl (80.0-96.0); MONO # 0.9 10^3/uL (0.0-0.8); MONO % 8.1 % (0.0-5.0); NEUTROPHILS # 7.7 10^3/uL (1.5-8.5); NEUTROPHILS % 69.5 % (36.0-66.0); PLATELET COUNT, AUTOMATED 285 10^3/uL (150-450); WHITE BLOOD COUNT 11.1 10^3/uL (4.0-10.0)
[2020-05-19 07:11] LABS: CALCIUM LEVEL 8.4 MG/DL (8.8-10.2); GLOMERULAR FILTRATION RATE 56.1 (>32); MAGNESIUM LEVEL 1.8 MG/DL (1.8-2.4)
[2020-05-19] MEDS: FLUTICASONE PROP 0.05% NASAL SPRAY 16 GM (FLONASE) SCH (08:59)
[2020-05-19] MEDS: MEMANTINE 5MG TABLET (NAMENDA) PO SCH (08:59)
[2020-05-19] MEDS: LORATADINE 10 MG TAB PO SCH (08:59)
[2020-05-19] MEDS: DOCUSATE SODIUM 100MG CAPSULE PO SCH (08:59)
[2020-05-19] MEDS: FUROSEMIDE 20 MG TAB PO SCH (08:59)
[2020-05-19] MEDS ORDERED: POTASSIUM CHLORIDE 10 MEQ SR TABLET PO ONE (10:15)
[2020-05-19] MEDS ORDERED: POTA1TAB14 PO (10:29)
[2020-05-19] MEDS ORDERED: CEFD300CAP PO (10:29)
[2020-05-19 10:49] LABS: C REACTIVE PROTEIN QUANTITATIV 0.58 MG/DL (0.00-0.30)
[2020-05-19 11:37] LABS: C REACTIVE PROTEIN QUANTITATIV < 0.30 MG/DL (0.00-0.30)
[2020-05-19] MEDS ORDERED: DIFL150T PO (11:38)
[2020-05-19] MEDS ORDERED: AUGM875T28 PO (11:44)
[2020-05-19] MEDS ORDERED: FLUCONAZOLE 50MG TABLET PO ONE (13:00)
[2020-05-19 14:00] VITALS: BP 123/72
--- NOTE | 2020-05-19 14:03 | DS.PDOC ---
Discharge Summary General Date of Admission May 17, 2020 at 18:47 Date of Discharge 05/19/2020 Discharge Summary PROCEDURES PERFORMED DURING STAY: [None]. ADMITTING DIAGNOSES / DISCHARGE DIAGNOSES: Possible UTI s/p AMS - likely 2/2 Delirium superimposed on dementia 2/2 UTI A. fib HTN Dementia BILL DLP DVT prophylaxis COMPLICATIONS/CHIEF COMPLAINT: Weakness / Reported confusion HISTORY OF PRESENT ILLNESS: Patient is an 84-year-old female with a PMHx of Dementia, HTN, A. fib (on Xarelto), s/p Pacemaker, HTN, DLP, BILL, Depression, GERD, who presented to the emergency room with deconditioning and reported altered mental status. Patient was admitted to the hospital service for urinary tract infection and potential placement. HOSPITAL COURSE: Possible UTI - UA abnormal - Urine culture 05/17: Pending - c/w Ceftriaxone; Will adjust to Augmentin - After discussion with her daughter, they requested that she get fluconazole by mouth given her recurrent yeast infections - Will have outpatient follow-up with primary care provider within the next 7 days s/p AMS - likely 2/2 Delirium superimposed on dementia 2/2 UTI - Currently patient appears to be pleasant, calm, cooperative and oriented to person - Patient has worked with physical therapy and has been cleared for discharge home with 24 7 care - Discussed with her and daughter; they will be able to provide 24/7 care at home A. fib - c/w rate control with atenolol - c/w full anticoagulation with Xarelto HTN - BP well controlled - c/w Lasix and Atenolol Dementia - c/w memantine BILL - Will allow home CPAP use while inpatient DLP - c/w Atorvastatin DVT prophylaxis - c/w full anticoagulation with Xarelto DISCHARGE MEDICATIONS: Please see below. ALLERGIES: Please see below. PHYSICAL EXAMINATION ON DISCHARGE: Vitals (See below) General: Lying in bed, does not appear to be in any distress, is oriented to person only HEENT: NC, AT CVS: +S1S2 Lungs: Air entry is fair bilaterally without any evidence of rhonchi, crackles or wheezing Abdomen: Soft, nondistended and nontender Extremities: Lower extremities are free of any pitting edema, - Calf tenderness LABORATORY DATA: Please see below. IMAGING: CXR (05/17/20): No acute consolidation or effusion. ACTIVITY: [As tolerated]. DISCHARGE PLAN: Follow-up with primary care provider within the next 7 days Remain compliant with treatment plan and medications Return to the ER if you experience any problems DISPOSITION: Home DISCHARGE CONDITION: [Stable]. TIME SPENT ON DISCHARGE: 35 minutes. Vital Signs/I&Os Vital Signs Date Time Temp Pulse Resp B/P (MAP) Pulse Ox O2 Delivery O2 Flow Rate FiO2 05/19/20 06:00 96.9 74 18 143/73 (96) 97 Room Air I&O- Last 24 Hours up to 6 AM 05/19/20 06:00 Intake Total 760 ml Output Total 0 ml Balance 760 ml Laboratory Data Labs 24H Laboratory Tests 2 05/19/20 06:12: Immature Granulocyte % (Auto) 0.5, Neutrophils (%) (Auto) 69.5H, Lymphocytes (%) (Auto) 20.9L, Monocytes (%) (Auto) 8.1H, Eosinophils (%) (Auto) 0.8, Basophils (%) (Auto) 0.2, Neutrophils # (Auto) 7.7, Lymphocytes # (Auto) 2.3, Monocytes # (Auto) 0.9H, Eosinophils # (Auto) 0.1, Basophils # (Auto) 0.0, Nucleated Red Blood Cells % (auto) 0.0, Anion Gap 9, Glomerular Filtration Rate 56.1, Calcium Level 8.4L, Magnesium Level 1.8, C-Reactive Protein, Quantitative 0.58H CBC/BMP Laboratory Tests 05/19/20 06:12 Microbiology Microbiology 05/17/20 Urine Culture, Received Pending 05/17/20 Blood Culture - Preliminary, Resulted No growth after 24 hours . All specim... 05/17/20 Blood Culture - Preliminary, Resulted No growth after 24 hours . All specim... Discharge Medications Scheduled Amoxicillin/Potassium Clav (Augmentin 875-125 Tablet) 1 Each Tablet, 875 MG PO BID Atenolol (Atenolol) 25 Mg Tablet, 25 MG QPM, (Reported) WITH SUPPER Atorvastatin Calcium (Atorvastatin Calcium) 40 Mg Tablet, 40 MG PO QPM, (Reported) WITH SUPPER Bimatoprost (Lumigan) 0.01% 2.5ML Drops, 1 DROP OU QHS, (Reported) Cholecalciferol (Vitamin D3) (Vitamin D3) 50 Mcg Capsule, 50 MCG PO BID, (Reported) Famotidine (Famotidine) 20 Mg Tablet, 20 MG PO QPM, (Reported) WITH SUPPER Fluconazole (Diflucan) 150 Mg Tablet, 1 TAB PO ONCE for yeast infection to be given post antibiotic therapy Fluticasone Propionate (Flonase Allergy Relief) 9.9 Ml [place].susp, 50 MCG NA DAILY, (Reported) Furosemide (Furosemide) 20 Mg Tablet, 20 MG PO DAILY, (Reported) Loratadine (Claritin) 10 Mg Capsule, 10 MG PO DAILY, (Reported) Memantine HCl (Memantine HCl) 10 Mg Tablet, 10 MG PO BID, (Reported) Potassium Chloride (Potassium Chloride) 20 Meq Tablet.er, 1 TAB PO DAILY Rivaroxaban (Xarelto) 20 Mg Tablet, 20 MG PO QPM, (Reported) WITH SUPPER Scheduled PRN Polyethylene Glycol 3350 (Miralax) 119 Gm Powder, 17 GRAM PO DAILY PRN for CONSTIPATION, (Reported) MIX WITH WATER OR JUICE Allergies Coded Allergies: No Known Allergies (Unverified , 05/17/20) TORI SMITH MD May 19, 2020 14:03
== END 2020-05-19 18:04 | disposition home or self-care (01) | DRG 690 ==
LOC: M ED 12:41 → M ED INP 18:47 → M MSPAV 05-18 00:18
PROVIDERS: ADMIT Family Medicine; ATTEND Internal Medicine
DX: N39.0 Urinary tract infection, site not specified (principal); F03.91 Unspecified dementia, unspecified severity, with behavioral disturbance; G47.33 Obstructive sleep apnea (adult) (pediatric); I10 Essential (primary) hypertension; I48.91 Unspecified atrial fibrillation; Z79.01 Long term (current) use of anticoagulants; Z95.0 Presence of cardiac pacemaker; F32.9 Major depressive disorder, single episode, unspecified; K21.9 Gastro-esophageal reflux disease without esophagitis; Z79.899 Other long term (current) drug therapy

== ENCOUNTER → 2020-07-01 | Outpatient (REF) ==
[~2020-07-01] MED LIST changes: +AUGM875T28 PO; +CEFD300CAP PO; +DIFL150T PO; +POTA1TAB14 PO
[2020-07-01 15:28] LABS: APPEARANCE, URINE CLEAR (CLEAR); BACTERIA, URINE AUTO NEGATIVE (NEGATIVE); BILIRUBIN, URINE AUTO NEGATIVE (NEGATIVE); BLOOD, URINE BLOOD NEGATIVE (NEGATIVE); COLOR, URINE YELLOW (YELLOW); GLUCOSE, URINE (UA) AUTO NEGATIVE (NEGATIVE); KETONE, URINE AUTO NEGATIVE (NEGATIVE); LEUKOCYTE ESTERASE, URINE AUTO NEGATIVE (NEGATIVE); MUCUS, URINE SMALL (NEGATIVE); NITRITE, URINE AUTO NEGATIVE (NEGATIVE); PROTEIN, URINE AUTO NEGATIVE (NEGATIVE); RBC, URINE AUTO 1 /HPF (0-3); SPECIFIC GRAVITY URINE AUTO 1.014 (1.002-1.035); SQUAMOUS EPITHELIAL CELL UR AU 2 /HPF (0-6); UROBILINOGEN, URINE AUTO 0.2 mg/dL (0.0-2.0); WBC, URINE AUTO 0 /HPF (0-3)
== END ==
LOC: M LAB REF 15:15
PROVIDERS: ATTEND Internal Medicine
DX: R30.0 Dysuria (principal)